=== PATIENT | male | born 1975 | race Caucasian/White ===

== ENCOUNTER → 2019-07-17 | Outpatient (CLI) | payer BC ==
--- NOTE | 2019-07-17 10:11 | Diagnostic Imaging Report ---
CT of the abdomen and pelvis, without contrast, 07/17/2019. History: Bilateral flank pain. Comparison: None available. Technique: Multidetector CT scanning of the abdomen and pelvis was performed from the level of the lung bases to the inferior pubic rami without intravenous or oral contrast. Coronal and sagittal multiplanar reformations were obtained. RADIATION DOSE: Total DLP: 1690 mGy*cm Dose modulation, iterative reconstruction, and/or weight based adjustment of the mA/kV was utilized to reduce the radiation dose to as low as reasonably achievable. Discussion: Examination is limited without contrast. Lung bases: No visualized abnormalities. Abdomen: The liver is enlarged measuring over 19 cm in length. There is diffuse low-density of the liver which measures only 2 to 11 Hounsfield units in density, with focal fatty sparing adjacent to the gallbladder. The gallbladder, biliary tree, spleen, pancreas, adrenal glands, and kidneys are unremarkable. There is no evidence of nephrolithiasis, hydronephrosis, or perinephric fat stranding. The ureters are not dilated. The abdominal aorta is within normal limits. There is no bowel dilatation. The appendix is visualized and is normal. There is no evidence of adenopathy or free fluid. Pelvis: There is mild diffuse thickening of the bladder wall, which is relatively underdistended. The prostate and seminal vesicles are unremarkable. There is no evidence of free fluid or adenopathy. Calcified phleboliths are present in the left pelvis. Bones and soft tissues: Degenerative changes are present throughout the lumbar spine without evidence of lytic or sclerotic lesion. IMPRESSION: 1. Hepatomegaly with severe diffuse fatty infiltration of the liver. 2. No evidence of nephrolithiasis, hydronephrosis, or hydroureter. 3. Mild bladder wall thickening which may be secondary to underdistention, but cystitis cannot be excluded. Otherwise unremarkable noncontrast exam. Signed by: Gino Bland on 07/17/2019 10:08 AM
== END ==
LOC: CT 08:32
PROVIDERS: ATTEND Family Medicine
DX: N39.0 Urinary tract infection, site not specified (principal)
CPT/HCPCS: 74176